=== PATIENT | female | born 1930 | race Caucasian/White ===

== ENCOUNTER 2018-03-20 13:27 | Inpatient (IN) ==
[2018-03-20] MEDS ORDERED: NON-FORMULARY MEDICATION 1 EACH EACH (Calcium Carbonate/Vitamin D3 [Calcium 500 + Vit D Ca PO SCH (21:00)
[2018-03-20] MEDS: Melatonin 3 MG TABLET PO SCH (22:12)
[2018-03-21 06:22] LABS: Basophils % 0.3 %; Eosinophils # 0.2 K/mcL (0.0-0.6); Eosinophils % 1.7 %; Hematocrit 30.4 % (35.3-44.9); Hemoglobin 10.4 g/dL (11.5-15.4); Immature Granulocytes % 3.1 % (0-4); Lymphocytes # 1.3 K/mcL (0.6-4.6); Lymphocytes % 9.8 %; Mean Corpuscular HGB Conc 34.2 g/dL (31.6-35.5); Mean Corpuscular Hemoglobin 31.8 pg (28.0-33.3); Mean Platelet Volume 9.7 fL (9.4-12.4); Monocytes # 1.6 K/mcL (0.0-1.3); Monocytes % 12.4 %; Neutrophils # 9.5 K/mcL (1.6-8.9); Platelet Count 285 K/mcL (140-400); Red Blood Count 3.27 M/mcL (3.82-4.97); Red Cell Distribution Width 14.3 % (11.5-14.5); Segmented Neutrophils % 72.7 %
[2018-03-21 06:35] LABS: Alanine Aminotransferase 10 Units/L (7-52); Albumin 2.6 g/dL (3.5-5.7); Alkaline Phosphatase 65 Units/L (34-104); Aspartate Amino Transferase 12 Units/L (13-39); BUN/Creatinine Ratio 19 (6-26); Bilirubin,Total 0.4 mg/dL (0.3-1.0); Blood Urea Nitrogen 10 mg/dL (8-23); Calcium 8.4 mg/dL (8.6-10.3); Carbon Dioxide 30 mEq/L (23-29); Chloride 100 mEq/L (98-107); Globulin 2.6 g/dL (2.4-3.5); Glucose 111 mg/dL (70-105); Osmolality,Calculated 280 (280-300); Potassium 3.4 mEq/L (3.5-5.1); Sodium 135 mEq/L (136-145); Total Protein 5.2 g/dL (6.4-8.9); eGFR For Non-African Americans > 60 (> 60)
[2018-03-21 06:46] LABS: Macrocytosis Present (Not Present); Platelet Estimate Normal (Normal)
[2018-03-21] MEDS: Furosemide 20 MG TABLET PO SCH (09:44)
[2018-03-21] MEDS: *HR* Amiodarone 200 MG TABLET PO SCH (09:44)
[2018-03-21] MEDS: Cholecalciferol (D-3) 1,000 UNIT TABLET PO SCH (09:44)
[2018-03-21] MEDS: *HR* Enoxaparin 40 MG/0.4 ML SYRINGE SQ SCH (11:23)
--- NOTE | 2018-03-21 11:31 | Internal Med History&Physical ---
Addendum entered and electronically signed by Monique Rodriguez 03/22/18 13:40: I have personally performed a face to face evaluation on this patient. I have reviewed and agree with the care plan. Original Note: Date of Encounter: 03/21/18 Time of Encounter: 11:26 Assessment and Plan (1) Physical deconditioning Current visit: Yes Status: Acute Patient continues with generalized weakness. No focal deficits noted. Will continue with current plan of care. PT/OT eval pending. (2) Ileus Current visit: Yes Status: Acute Ileus appears to have resolved. Abdomen is soft and nondistended. Patient states that she had a bowel movement this morning. Denies any abdominal cramping or nausea. We will continue with current plan of care. (3) Atrial fibrillation Current visit: Yes Status: Acute Acute issues. Patient's heart tones were auscultated and were regular on exam. Patient denies any chest palpitations or discomforts. We will continue with cu rrent medications. We will continue to monitor closely Qualifiers: Atrial fibrillation type: unspecified Qualified Code(s): I48.91 - Unspecified atrial fibrillation (4) Thoracic spine fracture Current visit: Yes Status: Acute Acute issues. Patient continues to have pain to her upper back. No deformities or step-offs noted on exam. No obvious injury noted. Patient currently with Lidoderm patch in place. Denies any radicular symptoms. We will continue with current plan of care and physical therapy. Qualifiers: Encounter type: subsequent encounter Fracture type: closed Fracture morphology: unspecified fracture morphology Fracture healing: with routine healing Qualified Code(s): S22.009D - Unspecified fracture of unspecified thoracic vertebra, subsequent encounter for fracture with routine healing Internal Medicine - H&P: HPI Chief complaint: weakness Admitted From: Hospital to Hospital Transfer Plans for Post Hospital Care: Home History of present illness: Ms. Bullock is a 87 year old female, who was transferred to this facility from an area hospital after being treated for possible sepsis, atrial fibrillation and a ileus. Patient was also with a history of a nonsurgical thoracic vertebrae fracture. Per minimal medical records provided patient's recovery at previous facility was mostly uneventful. Patient was noted to have episodes of slight hypotension and atrial fibrillation with RVR, which was treated and she has recovered well from. Patient continues with moderate generalized weakness requiring surgical therapy. Patient currently states mild pain to her upper back, which increases during mobilization. Patient denies any other discomforts or shortness of breath. Patient states that she has been passing gas and had a BM this morning nausea or vomiting. Denies any chest discomforts or palpitations. Past Med Surg Social Fam HX - Past Medical History Medical history: hyperlipidemia, hypertension, other Additional medical history: Acute PE Psychiatric history: no psych history - Past Surgical History Surgical History: cholecystectomy, hip replacement, knee replacement, other Additional surgical history: Bladder repair, common duct exploration - Social History Smoking Status: Never smoker Alcohol use: none Drug use: none - Family History Mother Living Status: Cause of : heart attack Hx Family Cardiac Disorders: Yes Father Living Status: Cause of : Alzheimers Internal Medicine - H&P: Meds Furosemide [Lasix] 20 mg PO DAILY 07/26/15 [History] Lidocaine Patch [Lidoderm 5% patch] 1 each TP DAILY 07/26/15 [History] Lisinopril [Zestril] 10 mg PO DAILY 07/26/15 [History] Pantoprazole Sodium [Protonix] 40 mg PO DAILY 07/26/15 [History] Simvastatin [Zocor] 40 mg PO HS 07/26/15 [History] Acetaminophen [Tylenol] 650 mg PO Q4HR PRN 03/20/18 [History] Albuterol Sulfate [Proventil Hfa] 6.7 gm IH Q6HR PRN 03/20/18 [History] Amiodarone [Cordarone] 200 mg PO DAILY 03/20/18 [History] Amoxicillin 875 mg PO BID 03/20/18 [History] Calcium Carbonate/Vitamin D3 [Calcium 500 + Vit D Caplet] 1 each PO BID 03/20/18 [History] Ferrous Sulfate [Iron] 325 mg PO BID 03/20/18 [History] Loperamide [Imodium] 2 mg PO Q6HR PRN 03/20/18 [History] Meclizine [Antivert] 25 mg PO Q6HR PRN 03/20/18 [History] Melatonin 3 mg PO HS 03/20/18 [History] Tamsulosin HCl [Flomax] 0.4 mg PO DAILY 03/20/18 [History] Allergy/AdvReac Type Severity Reaction Status Date / Time Sulfa (Sulfonamide Allergy See Verified 07/26/15 20:28 Antibiotics) Comments All Systems PM: A 10-system review of systems was performed and is negative for pertinent findings except as documented above in the HPI. - Constitutional Constitutional: as per HPI, no chills, no fever(s), no night sweats - EENT Eyes: as per HPI, no change in vision, no discharge, no pain, no photophobia Ears: no ear discharge, no ear pain, no tinnitus Nose, mouth and throat: as per HPI, no dysphagia, no nasal discharge, no neck pain, no sore throat - Breasts Breasts: as per HPI - Cardiovascular Cardiovascular ROS IM: as per HPI, no chest pain, no diaphoresis, no dyspnea, no lightheadedness, no palpitations, no syncope - Respiratory Respiratory: as per HPI, no cough, no dyspnea, no wheezing, no excessive phlegm production - Gastrointestinal Gastrointestinal: as per HPI, no abdominal pain, no diarrhea, no hematemesis, no hematochezia, no melena, no nausea, no vomiting - Genitourinary Genitourinary: as per HPI, no change in urinary stream, no dysuria, no flank pain, no hematuria - Musculoskeletal Musculoskeletal ROS IM: as per HPI, no numbness, no tingling - Integumentary Integumentary IM: no rash, no unusual bruising - Neurological Neurological ROS: as per HPI, no confusion, no convulsions, no focal weakness, no numbness, no tingling, no tremor(s) - Hematologic/Lymphatic Hematologic/Lymphatic: no easy bruising - Constitutional Vitals: Temp Pulse Resp BP Pulse Ox 99.2 F 102 16 141/82 93 03/21/18 11:16 03/21/18 11:16 03/21/18 11:16 03/21/18 11:16 03/21/18 11:16 General appearance: Present: A&O X 3, pleasant - Head Head exam: Present: atraumatic, normocephalic - Eye Eye exam: Present: PERRL, conjuntiva pink, sclera anicteric Pupils: Present: PERRL - Neck Neck exam general surgery: Present: supple, trachea midline. Absent: lymphadenopathy - Respiratory Respiratory exam: Present: CTAB. Absent: accessory muscle use, rales, rhonchi, wheezes Additional comments: Lungs are CTA to upper hou and diminished bases. RR relaxed - Cardiovascular Cardiovascular exam: Present: RRR, +S1, +S2. Absent: diastolic murmur, gallop, rubs, systolic murmur - GI/Abdominal GI/Abdominal exam: Present: normal bowel sounds, soft, no peritoneal signs. Absent: distended, tenderness Additional comments: slightly distended, but soft and nontender with BS all quads - Extremities Exam Extremities exam: Present: warm, radial pulses palpable and symmetrical. Absent: calf tenderness, cyanotic, pedal edema - Back Exam Additional comments: Reason with complaints of slight tenderness to upper back. No signs of obvious injury patient's complaints were during palpitation. No step-offs or deformities noted on palpitation - Neurological Exam Neurological exam: Present: CN II-XII intact, oriented X3, no focal deficits. Absent: pronater drift, facial droop, speech deficit - Skin Skin exam: Present: dry, intact Internal Med - H&P Results - Labs CBC & Chem 7: 03/21/18 06:00 03/21/18 06:00 Labs: Short CBC 03/21/18 Range/Units 06:00 WBC 13.1 H (4.3-11.1) K/mcL Hgb 10.4 L (11.5-15.4) g/dL Hct 30.4 L (35.3-44.9) % Plt Count 285 (140-400) K/mcL Neutrophils # 9.5 H (1.6-8.9) K/mcL BMP 03/21/18 06:00 Sodium 135 L Potassium 3.4 L Chloride 100 Carbon Dioxide 30 H BUN 10 Creatinine 0.53 L Glucose 111 H Calcium 8.4 L Liver Function 03/21/18 Range/Units 06:00 Total Bilirubin 0.4 (0.3-1.0) mg/dL AST 12 L (13-39) Units/L ALT 10 (7-52) Units/L Alkaline Phosphatase 65 (34-104) Units/L Albumin 2.6 L (3.5-5.7) g/dL
[2018-03-21] MEDS: Melatonin 3 MG TABLET PO SCH (20:42)
[2018-03-22] MEDS: *HR* Enoxaparin 40 MG/0.4 ML SYRINGE SQ SCH (04:31)
[2018-03-22] MEDS: Furosemide 20 MG TABLET PO SCH (09:43)
[2018-03-22] MEDS: *HR* Amiodarone 200 MG TABLET PO SCH (09:43)
[2018-03-22] MEDS: Cholecalciferol (D-3) 1,000 UNIT TABLET PO SCH (09:43)
[2018-03-22] MEDS ORDERED: *HR* Enoxaparin 40 MG/0.4 ML SYRINGE SQ SCH (10:10)
--- NOTE | 2018-03-22 10:59 | Internal Med Progress Note ---
Addendum entered and electronically signed by Monique Rodriguez 03/22/18 13:41: I have personally performed a face to face evaluation on this patient. I have reviewed and agree with the care plan. Original Note: Date of Encounter: 03/22/18 Time of Encounter: 10:57 - Assessment and plan (1) Physical deconditioning Current Visit: Yes Status: Acute Assessment and plan: Patient continues with moderate generalized weakness. Patient continues with physical therapy which is progressing well. (2) Ileus Current Visit: Yes Status: Acute Assessment and plan: No acute issues. Patient poorly continues to have loose stools. Abdomen remains slightly distended but no tenderness and remains soft. Denies any abdominal cramping or nausea. We will continue with current plan of care. We will continue to mobilize. (3) Thoracic spine fracture Current Visit: Yes Status: Acute Assessment and plan: No acute issues. Neurological exam remains unchanged. Patient denies any radi cular symptoms. Continued slight pain to thoracic spine area. We will continue with current pain medications Qualifiers: Encounter type: subsequent encounter Fracture type: closed Fracture morphology: unspecified fracture morphology Fracture healing: with routine healing Qualified Code(s): S22.009D - Unspecified fracture of unspecified thoracic vertebra, subsequent encounter for fracture with routine healing - Time Spent With Patient less than 15 minutes - Subjective Interval history: Patient appears relaxed and currently denies any current issues. Patient continues with complaints of pain to her thoracic spine region. States the pain is tolerable with current pain medications. Continue with Lidoderm patch in place. Patient reports patient continues to have loose stools. Patient denies any abdominal cramping or nausea. - Constitutional Vitals: Temp Pulse Resp BP Pulse Ox 99.3 F 55 16 129/73 93 03/22/18 07:14 03/22/18 07:14 03/22/18 07:14 03/22/18 07:14 03/22/18 07:14 General appearance: Present: A&O X 3, pleasant - Head Head exam: Present: atraumatic, normocephalic - Eye Eye exam: Present: PERRL, conjuntiva pink, sclera anicteric Pupils: Present: PERRL - Neck Neck exam general surgery: Present: supple, trachea midline. Absent: lymp hadenopathy - Respiratory Respiratory exam: Present: CTAB. Absent: accessory muscle use, rales, rhonchi, wheezes Additional comments: Lungs are clear throughout upper hou and diminished bases. Respiratory effort appears relaxed. No productive cough noted. - Cardiovascular Cardiovascular exam: Present: RRR, +S1, +S2. Absent: diastolic murmur, gallop, rubs, systolic murmur - GI/Abdominal GI/Abdominal exam: Present: normal bowel sounds, soft, no peritoneal signs. Absent: distended, tenderness Additional comments: Abdomen remains slightly distended but is soft and nontender. Bowel sounds all quadrants. - Extremities Exam Extremities exam: Present: warm, radial pulses palpable and symmetrical. Absent: calf tenderness, cyanotic, pedal edema - Back Exam Additional comments: Upper back palpated with no complaints of tenderness. No step-offs or deformities noted. No obvious injuries noted - Neurological Exam Neurological exam: Present: CN II-XII intact, oriented X3, no focal deficits. Absent: pronater drift, facial droop, speech deficit - Skin Skin exam: Present: dry, intact Internal Medicine: Result - Labs CBC & Chem 7: 03/21/18 06:00 03/21/18 06:00 Consult Discharge Plan - Plan Referrals: Eugenio Epstein [Primary Care Provider] -
[2018-03-22] MEDS: Melatonin 3 MG TABLET PO SCH (20:21)
[2018-03-23] MEDS: *HR* Enoxaparin 40 MG/0.4 ML SYRINGE SQ SCH (05:50)
[2018-03-23 06:35] LABS: BUN/Creatinine Ratio 13 (6-26); Blood Urea Nitrogen 7 mg/dL (8-23); Calcium 8.5 mg/dL (8.6-10.3); Carbon Dioxide 30 mEq/L (23-29); Chloride 98 mEq/L (98-107); Glucose 102 mg/dL (70-105); Osmolality,Calculated 274 (280-300); Potassium 3.4 mEq/L (3.5-5.1); Sodium 133 mEq/L (136-145); eGFR For Non-African Americans > 60 (> 60)
[2018-03-23] MEDS: Furosemide 20 MG TABLET PO SCH (09:13)
[2018-03-23] MEDS: Cholecalciferol (D-3) 1,000 UNIT TABLET PO SCH (09:13)
[2018-03-23] MEDS: *HR* Amiodarone 200 MG TABLET PO SCH (09:14)
[2018-03-23] MEDS ORDERED: Eucerin Cream 57 GM TUBE TP PRN (15:57)
--- NOTE | 2018-03-23 15:58 | Internal Med Progress Note ---
Date of Encounter: 03/23/18 Time of Encounter: 13:30 - Subjective Interval history: - Assessment and plan (1) Physical deconditioning and failure to thrive Current Visit: Yes Status: Acute Assessment and plan: Patient continues with severe generalized weakness, muscle wasting and poor po intake and no appetite will ask for assist with her mech soft meals, thickened liq will add supplement with dinner will add megace will treat nausea with prn zofran will treat cough with tessalon she has low K and has been on oral K supplement will recheck basic chem . Patient continues with physical therapy (2) Ileus Current Visit: Yes Status: Acute Assessment and plan: resolved on last day of augmentin will add probiotic Patient poorly continues to have loose stools. Abdomen remains slightly distended but no tenderness and remains soft. Denies any abdominal cramping or nausea. We will continue with current plan of care. We will continue to mobilize. (3) Thoracic spine fracture Current Visit: Yes Status: Acute Assessment and plan: still had pain - using lidoderm on calcium D . Neurological exam remains unchanged. Patient denies any radicular symptoms. We will continue with current pain medications Qualifiers: Encounter type: subsequent encounter Fracture type: closed Fracture morphology: unspecified fracture morphology Fracture healing: with routine healing Qualified Code(s): S22.009D - Unspecified fracture of unspecified thoracic vertebra, subsequent encounter for fracture with routine healing - Time Spent With Patient less than 15 minutes - Subjective Interval history: Patient continues with complaints of pain to her thoracic spine region. States the pain is tolerable with current pain medications. Continue with Lidoderm patch in place. Patient is weak and not eating well. Patient reports patient continues to have loose stools. She is nauseated at times . - EXAM General appearance: Present: very [place] - reads lips alert fatigued and frail muscle wasting noted WF - Eye Pupils: Present: PERRL - Neck Neck exam general surgery: Present: supple, trachea midline. she has some increased curvature of cervical spine - Respiratory Respiratory exam: Present: CTAB. pt has dry cough Absent: accessory muscle use, rales, rhonchi, wheezes Additional comments: Lungs are clear throughout upper hou and diminished bases. Respiratory effort appears relaxed. non productive cough noted. - Cardiovascular Cardiovascular exam: Present: RRR, +S1, +S2. Absent: diastolic murmur, gallop, rubs, systolic murmur - GI/Abdominal GI/Abdominal exam: Present: normal bowel sounds, soft, no peritoneal signs. Absent: distended, tenderness Additional comments: Abdomen remains slightly distended but is soft and nontender. Bowel sounds all quadrants. - Extremities Exam Extremities exam: Present: warm, radial pulses palpable and symmetrical. Absent: calf tenderness, cyanotic, pedal edema - Neurological Exam Neurological exam: Present: CN II-XII intact, oriented X3, no focal deficits. - Skin Skin exam: Present: thin skin dry, intact - Constitutional Vitals: Temp Pulse Resp BP Pulse Ox 97.9 F 98 19 127/82 91 03/23/18 07:50 03/23/18 07:50 03/22/18 20:17 03/23/18 07:50 03/23/18 07:50 General appearance: Present: A&O X 3, pleasant Internal Medicine: Result - Labs CBC & Chem 7: 03/21/18 06:00 03/23/18 05:40 Labs: BMP 03/23/18 05:40 Sodium 133 L Potassium 3.4 L Chloride 98 Carbon Dioxide 30 H BUN 7 L Creatinine 0.54 L Glucose 102 Calcium 8.5 L Consult Discharge Plan - Plan Referrals: Eugenio Epstein [Primary Care Provider] -
[2018-03-23] MEDS: Benzonatate 100 MG CAPSULE PO SCH ×2 (16:45→20:37)
[2018-03-23] MEDS: GuaiFENesin Liq 200 MG/10 ML UDC PO SCH (16:45)
[2018-03-23] MEDS: Melatonin 3 MG TABLET PO SCH (20:37)
[2018-03-24] MEDS: Acetaminophen 325 MG TABLET PO PRN ×2 (00:05→21:20)
[2018-03-24] MEDS: GuaiFENesin Liq 200 MG/10 ML UDC PO SCH ×2 (00:05→10:12)
[2018-03-24] MEDS: *HR* Enoxaparin 40 MG/0.4 ML SYRINGE SQ SCH (05:04)
[2018-03-24] MEDS: Furosemide 20 MG TABLET PO SCH (10:12)
[2018-03-24] MEDS: Benzonatate 100 MG CAPSULE PO SCH ×3 (10:12→22:44)
[2018-03-24] MEDS: Cholecalciferol (D-3) 1,000 UNIT TABLET PO SCH (10:12)
[2018-03-24] MEDS: *HR* Amiodarone 200 MG TABLET PO SCH (10:12)
[2018-03-24] MEDS ORDERED: Ondansetron ODT 4 MG TAB.RAPDIS SL PRN (12:32)
--- NOTE | 2018-03-24 13:45 | Internal Med Progress Note ---
Date of Encounter: 03/24/18 Time of Encounter: 15:00 - Subjective Interval history: - Assessment and plan (1) Physical deconditioning and failure to thrive Current Visit: Yes Status: Acute Assessment and plan: Patient continues with severe generalized weakness, muscle wasting and poor po intake and no appetite will ask for assist with her mech soft meals, thickened liq will add supplement with dinner will add megace will treat nausea with prn zofran will treat cough with tessalon . Patient continues with physical therapy (2) Ileus Current Visit: Yes Status: Acute Assessment and plan: resolved on last day of augmentin will add probiotic Patient poorly continues to have loose stools. Abdomen remains slightly distended but no tenderness and remains soft. Denies any abdominal cramping or nausea. We will continue with current plan of care. We will continue to mobilize. (3) Thoracic spine fracture Current Visit: Yes Status: Acute Assessment and plan: still had pain - using lidoderm on calcium D . Neurological exam remains unchanged. Patient denies any radicular symptoms. We will continue with current pain medications Qualifiers: Encounter type: subsequent encounter Fracture type: closed Fracture mo rphology: unspecified fracture morphology Fracture healing: with routine healing Qualified Code(s): S22.009D - Unspecified fracture of unspecified thoracic vertebra, subsequent encounter for fracture with routine healing (4) Hypokalemia he has low K and has been on oral K supplement K still low 3.4 today will give 20 meq K IV will recheck basic chem - Time Spent With Patient less than 15 minutes - Subjective Interval history: Patient continues with complaints of pain to her thoracic spine region. States the pain is tolerable with current pain medications. Continue with Lidoderm patch in place. Patient is weak and not eating well. Patient reports patient continues to have loose stools. She is nauseated at times . - EXAM General appearance: Present: very [place] - reads lips alert fatigued and frail muscle wasting noted W[place] - Eye Pupils: Present: PERRL - Neck Neck exam general surgery: Present: supple, trachea midline. she has some increased curvature of cervical spine - Respiratory Respiratory exam: Present: CTAB. pt has dry cough Absent: accessory muscle use, rales, rhonchi, wheezes Additional comments: Lungs are clear throughout upper hou and diminished bases. Respiratory effort appears relaxed. non productive cough noted. - Cardiovascular Cardiovascular exam: Present: RRR, +S1, +S2. Absent: diastolic murmur, gallop, rubs, systolic murmur - GI/Abdominal GI/Abdominal exam: Present: normal bowel sounds, soft, no peritoneal signs. Absent: distended, tenderness Additional comments: Abdomen remains slightly distended but is soft and nontender. Bowel sounds all quadrants. - Extremities Exam Extremities exam: Present: warm, radial pulses palpable and symmetrical. Absent: calf tenderness, cyanotic, pedal edema - Neurological Exam Neurological exam: Present: CN II-XII intact, oriented X3, no focal deficits. - Skin Skin exam: Present: thin skin dry, intact - Constitutional Vitals: Temp Pulse Resp BP Pulse Ox 98.9 F 101 16 151/88 90 03/24/18 08:36 03/24/18 08:36 03/24/18 08:36 03/24/18 08:36 03/24/18 08:36 General appearance: Present: A&O X 3, pleasant Internal Medicine: Result - Labs CBC & Chem 7: 03/21/18 06:00 03/23/18 05:40 Consult Discharge Plan - Plan Referrals: Eugenio Epstein [Primary Care Provider] -
[2018-03-24] MEDS ORDERED: 0.9 % Sodium Chloride 250 ML ONE (14:07)
[2018-03-24] MEDS: Megestrol Acetate 400 MG/10 ML UDC PO SCH (14:21)
[2018-03-24] MEDS ORDERED: Ipratropium/Albuterol Neb 3 ML IH PRN (19:56)
[2018-03-24] MEDS: Melatonin 3 MG TABLET PO SCH (21:20)
[2018-03-24] MEDS: Ipratropium/Albuterol Neb 3 ML IH SCH (21:20)
[2018-03-24] MEDS: Lactobacillus 1 EACH CAP.SPRINK PO SCH (21:20)
[2018-03-24] MEDS: cefTRIAXone 1,000 MG in Water for inj. (sterile) 20 ML 10 ML IVP SCH (21:20)
[2018-03-25 00:25] LABS: Bilirubin,Urine Negative (Negative); Blood,Urine Negative (Negative); Clarity,Urine Slightly Cloudy (Clear); Glucose,Urine (UA) Normal (Normal); Ketones,Urine Trace mg/dL (Negative); Leukocyte Esterase,Urine Negative (Negative); Nitrite,Urine Negative (Negative); PH,Urine 6.5 pH Units (5.0-8.0); Protein,Urine Negative (Neg-Trace); Specific Gravity,Urine 1.015 (1.010-1.025); Urobilinogen,Urine Normal (Normal)
[2018-03-25 00:26] LABS: Color,Urine Yellow (Yellow)
[2018-03-25] MEDS: MetroNIDAZOLE 500 MG/100 ML 500 MG/100 ML BAG IVPB SCH ×3 (00:39→16:20)
[2018-03-25] MEDS: Ipratropium/Albuterol Neb 3 ML IH SCH ×3 (01:37→18:08)
[2018-03-25] MEDS: *HR* Enoxaparin 40 MG/0.4 ML SYRINGE SQ SCH (04:56)
[2018-03-25] MEDS: Acetaminophen 325 MG TABLET PO PRN ×2 (04:59→17:31)
[2018-03-25 06:22] LABS: Basophils % 0.4 %; Eosinophils % 0.1 %; Hematocrit 28.5 % (35.3-44.9); Hemoglobin 9.5 g/dL (11.5-15.4); Immature Granulocytes % 0.7 % (0-4); Lymphocytes # 0.6 K/mcL (0.6-4.6); Lymphocytes % 7.8 %; Mean Corpuscular HGB Conc 33.3 g/dL (31.6-35.5); Mean Corpuscular Hemoglobin 31.6 pg (28.0-33.3); Mean Corpuscular Volume 94.7 fL (83.0-100.0); Mean Platelet Volume 9.9 fL (9.4-12.4); Monocytes # 1.2 K/mcL (0.0-1.3); Monocytes % 14.7 %; Neutrophils # 6.2 K/mcL (1.6-8.9); Platelet Count 288 K/mcL (140-400); Red Blood Count 3.01 M/mcL (3.82-4.97); Red Cell Distribution Width 15.2 % (11.5-14.5); Segmented Neutrophils % 76.3 %
[2018-03-25 06:24] LABS: BUN/Creatinine Ratio 13 (6-26); Blood Urea Nitrogen 8 mg/dL (8-23); Calcium 8.1 mg/dL (8.6-10.3); Carbon Dioxide 29 mEq/L (23-29); Chloride 100 mEq/L (98-107); Glucose 105 mg/dL (70-105); Osmolality,Calculated 279 (280-300); Potassium 3.6 mEq/L (3.5-5.1); Sodium 135 mEq/L (136-145); eGFR For Non-African Americans > 60 (> 60)
[2018-03-25] MEDS: Lactobacillus 1 EACH CAP.SPRINK PO SCH ×2 (08:16→20:04)
[2018-03-25] MEDS: Cholecalciferol (D-3) 1,000 UNIT TABLET PO SCH (08:32)
[2018-03-25] MEDS: *HR* Amiodarone 200 MG TABLET PO SCH (08:33)
[2018-03-25] MEDS: Megestrol Acetate 400 MG/10 ML UDC PO SCH (08:34)
[2018-03-25] MEDS: Benzonatate 100 MG CAPSULE PO SCH ×3 (11:46→20:05)
--- NOTE | 2018-03-25 13:25 | Internal Med Progress Note ---
Date of Encounter: 03/25/18 Time of Encounter: 11:45 - Subjective Interval history: - Assessment and plan (1) Physical deconditioning and failure to thrive Current Visit: Yes Status: Acute Assessment and plan: Patient continues with severe generalized weakness, muscle wasting and poor po intake and no appetite may be complicated by depression and colitis pt advised nurse she has been sad, denies active suicidal ideation ate about 5% of meals has thickened liquid for dysphagia needs some assist with meals pills better if crush and in applesauce will ask for assist with her mech soft meals, thickened liq and crush pills when able added supplement with dinner added megace can treat nausea with prn zofran . Patient continues with physical therapy as per her request (2) colitis, diarrhea, hx of Ileus Current Visit: Yes Status: Acute Assessment and plan: resolved on last day of augmentin yeseteray yesterday evening had 3 episodes diarrhea no melana and fever adding probiotic Abdomen remains slightly distended but no tenderness and remains soft. Did start iv flagly overnight no more stools so far hold lasix for now We will continue with current plan of care. We will continue to mobilize. (3) Thoracic spine fracture Current Visit: Yes Status: Acute Assessment and plan: still had pain - using lidoderm on calcium D . Neurological exam remains unchanged. Patient denies any radicular symptoms. We will continue with current pain medications Qualifiers: Encounter type: subsequent encounter Fracture type: closed Fracture morphology: unspecified fracture morphology Fracture healing: with routine healing Qualified Code(s): S22.009D - Unspecified fracture of unspecified thoracic vertebra, subsequent encounter for fracture with routine healing (4) Hypokalemia he has low K and has been on oral K supplement was having diarrhea as above GI loss and poor po intake will replace as needed, will recheck basic chem (5) Depression Pt reports sadness She is not happy to still be weak and be in hospital being very [place] makes it harder for her to communicate she does read lips well pt denies SI psych consult Zoloft (6) hx Pneumonia - possible new pneumonitis Pt has had cough and family reports hx of pneumonia xray shows scar and possible pneumonitis yesterday sputum became yellowish and had fever prev sputum was clear and scant pt had wheeze that responded well to duonebs- will continue duonebs started rocephin today no fever and wbc count normalizing pt likely has had increase atalectasis - Time Spent With Patient less than 30 minutes - Subjective Interval history: Pt overnight had developed fever and BP was from 150 to 115 HR 110 pt had onset yellow sputum and some wheeze, and increased diarrhea and abd distention. xrays showed no ileus but poss pneumonits. K remains low as she is not eating and has GI loss. She is not getting enough nutrition to be effective. Started on megace. Started on rocephin and flagyl and duonebs. Giving K . Depression may be contributing to her lack of eating. Started on Zoloft. No more diarrhea today. Lasix is on hold. She is feeling better today and she does want to continue PT. Patient continues with complaints of pain to her thoracic spine region. States the pain is tolerable with current pain medications. Continue with Lidoderm patch in place. - EXAM General appearance: Present: very [place] - reads lips alert fatigued and frail muscle wasting noted WF - Eye Pupils: Present: PERRL - Neck Neck exam general surgery: Present: supple, trachea midline. she has some increased curvature of cervical spine - Respiratory Respiratory exam: Present: faint musical wheezes. pt has dry cough Absent: accessory muscle use, rales, rhonchi, wheezes Additional comments: - Cardiovascular Cardiovascular exam: Present: RRR, +S1, +S2. Absent: diastolic murmur, gallop, rubs, systolic murmur - GI/Abdominal GI/Abdominal exam: Present: normal bowel sounds, soft, no peritoneal signs. Absent: distended, tenderness Additional comments: Abdomen remains slightly distended but is soft and nontender. Bowel sounds all quadrants. - Extremities Exam Extremities exam: Present: warm, radial pulses palpable and symmetrical. Absent: calf tenderness, cyanotic, pedal edema - Neurological Exam Neurological exam: Present: CN II-XII intact, oriented X3, no focal deficits. - Skin Skin exam: Present: thin skin dry, intact small erythema area arm where IV was soft - Constitutional Vitals: Temp Pulse Resp BP Pulse Ox 99.2 F 85 20 106/62 94 03/25/18 04:00 03/25/18 04:00 03/25/18 09:19 03/25/18 04:00 03/25/18 09:19 General appearance: Present: A&O X 3, pleasant Internal Medicine: Result - Labs CBC & Chem 7: 03/25/18 05:35 03/25/18 05:35 Labs: Short CBC 03/25/18 Range/Units 05:35 WBC 8.1 (4.3-11.1) K/mcL Hgb 9.5 L (11.5-15.4) g/dL Hct 28.5 L (35.3-44.9) % Plt Count 288 (140-400) K/mcL Neutrophils # 6.2 (1.6-8.9) K/mcL BMP 03/25/18 05:35 Sodium 135 L Potassium 3.6 Chloride 100 Carbon Dioxide 29 BUN 8 Creatinine 0.64 Glucose 105 Calcium 8.1 L Urine 03/25/18 Range/Units 00:05 Urine Color Yellow (Yellow) Urine Clarity Slightly Cloudy A (Clear) Urine pH 6.5 (5.0-8.0) pH Units Ur Specific [place] 1.015 (1.010-1.025) Urine Protein Negative (Neg-Trace) mg/dL Urine Glucose (UA) Normal (Normal) mg/dL - Impressions Impressions Chest X-Ray 03/24/18 19:41 IMPRESSION: 1. Low lung volumes with pulmonary findings typical of fibrosis. Superimposed interstitial pneumonitis is a consideration. 2. Calcific atherosclerosis aorta. 3. Cardiomegaly. 4. Hiatal hernia. D/ / Mathew Dooley / Mathew Dooley Interpreting Provider: Mathew Dooley X-Ray 03/24/18 19:43 IMPRESSION: Unremarkable bowel-gas pattern. 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 Probable right nephrolithiasis D/ / Mathew Dooley / Mathew Dooley Interpreting Provider: Mathew Dooley Consult Discharge Plan - Plan Referrals: Eugenio Epstein [Primary Care Provider] -
[2018-03-25] MEDS: Cyanocobalamin (B-12) 1,000 MCG TABLET PO SCH (16:12)
[2018-03-25] MEDS: Hydrocortisone Sodium Succ 100 MG/2 ML VIAL IVP SCH (16:16)
[2018-03-25] MEDS: cefTRIAXone 1,000 MG in Water for inj. (sterile) 20 ML 10 ML IVP SCH (18:22)
[2018-03-25] MEDS: Melatonin 3 MG TABLET PO SCH (20:04)
[2018-03-26] MEDS: MetroNIDAZOLE 500 MG/100 ML 500 MG/100 ML BAG IVPB SCH (00:32)
[2018-03-26] MEDS: Hydrocortisone Sodium Succ 100 MG/2 ML VIAL IVP SCH ×4 (00:39→23:22)
[2018-03-26] MEDS: Acetaminophen 325 MG TABLET PO PRN (01:40)
[2018-03-26] MEDS: Ipratropium/Albuterol Neb 3 ML IH SCH ×3 (01:40→17:38)
[2018-03-26] MEDS: *HR* Enoxaparin 40 MG/0.4 ML SYRINGE SQ SCH (05:42)
[2018-03-26 05:53] LABS: Hematocrit 30.4 % (35.3-44.9); Mean Corpuscular HGB Conc 32.9 g/dL (31.6-35.5); Mean Corpuscular Hemoglobin 31.2 pg (28.0-33.3); Mean Corpuscular Volume 94.7 fL (83.0-100.0); Mean Platelet Volume 9.7 fL (9.4-12.4); Platelet Count 306 K/mcL (140-400); Red Blood Count 3.21 M/mcL (3.82-4.97); Red Cell Distribution Width 15.3 % (11.5-14.5)
[2018-03-26 06:07] LABS: BUN/Creatinine Ratio 17 (6-26); Blood Urea Nitrogen 11 mg/dL (8-23); Calcium 8.2 mg/dL (8.6-10.3); Carbon Dioxide 27 mEq/L (23-29); Chloride 101 mEq/L (98-107); Glucose 149 mg/dL (70-105); Osmolality,Calculated 280 (280-300); Potassium 3.9 mEq/L (3.5-5.1); Sodium 134 mEq/L (136-145); eGFR For Non-African Americans > 60 (> 60)
[2018-03-26] MEDS: Lactobacillus 1 EACH CAP.SPRINK PO SCH ×2 (09:40→20:00)
[2018-03-26] MEDS: Megestrol Acetate 400 MG/10 ML UDC PO SCH (09:40)
[2018-03-26] MEDS: Cyanocobalamin (B-12) 1,000 MCG TABLET PO SCH (09:41)
[2018-03-26] MEDS: Benzonatate 100 MG CAPSULE PO SCH ×3 (09:41→20:00)
[2018-03-26] MEDS: *HR* Amiodarone 200 MG TABLET PO SCH (09:41)
[2018-03-26] MEDS: Cholecalciferol (D-3) 1,000 UNIT TABLET PO SCH (09:41)
--- NOTE | 2018-03-26 14:30 | Internal Med Progress Note ---
Addendum entered and electronically signed by Robert Shelton MD 03/26/18 14:50: I have personally performed a face to face evaluation on this patient. I have r eviewed and agree with the care plan. History and Exam by me shows: Patient is very concerned about her hearing aids not working. She is very hard to communicate with in terms of hearing. She states that she is supposed to have a specialist come to fix her aids and ask him that it is working. I told her that I unfortunately do not know. Communication is somewhat I her lip breathing, hearing, and gross hand signals such as "okay." Discussed care with other providers and/or nursing. Patient has no complaint of chest discomfort, dyspnea, orthopnea, palpitations, nausea or vomiting, constipation or diarrhea, other changes in bowel habits, difficulty with urination, rash or itching, or other new complaints, except as mentioned above. Review of systems is otherwise negative. Examination: (Except as mentioned above): General: In no apparent distress. Alert and oriented 3. Nondiaphoretic. Head: Atraumatic and normocephalic. Respiratory: No use of accessory muscles. Lungs are remarkable for rhonchi, especially in the right upper lobe area. She has a few scattered rhonchi, throughout. I am unable to assess fremitus or egophony because of patient compliance. Normal airflow. Cardiovascular: Regular rate and rhythm without murmur appreciated. Abdomen: Bowel sounds are normal. No hepatosplenomegaly mass or tenderness appreciated. Obese and therefore difficult to palpate deeply. Extremities: No cyanosis clubbing or edema. Skin: Warm and non-diaphoretic with no new lesions noted. IV access has been a problem and I think she needs to have a couple of days of IV antibiotics. Based on her current findings, I feel the need is significant enough that she should have a midline catheter. Original Note: Date of Encounter: 03/26/18 Time of Encounter: 14:21 - Assessment and plan (1) Pneumonia Current Visit: Yes Status: Acute Assessment and plan: vancomycin IV. monitor . Continue O2 per nasal cannula. Maintaining sets greater than 95% at 2 L. Qualifiers: Pneumonia type: due to unspecified organism Laterality: bilateral Lung location: unspecified part of lung Qualified Code(s): J18.9 - Pneumonia, unspecified organism (2) Failure to thrive Current Visit: Yes Status: Acute Assessment and plan: appetite slightly improved today. continue megace. monitor labs. Qualifiers: Failure to thrive age range: in adult Qualified Code(s): R62.7 - Adult failure to thrive (3) Physical deconditioning Current Visit: Yes Status: Acute Assessment and plan: Continue PT and OT. Will follow progress. Continue wheelchair for mobility. (4) Thoracic spine fracture Current Visit: Yes Status: Acute Assessment and plan: Pain controlled with Lidoderm patch. Qualifiers: Encounter type: subsequent encounter Fracture type: closed Fracture m orphology: unspecified fracture morphology Fracture healing: with routine healing Qualified Code(s): S22.009D - Unspecified fracture of unspecified thoracic vertebra, subsequent encounter for fracture with routine healing - Time Spent With Patient less than 15 minutes - Subjective Interval history: pt sitting up in [facility], participating with therapy. States that she has slight mid back pain. Has Lidoderm patch on. Has been having increased anxiety with tearful episodes. On Zoloft which was recently increased a 75 mg. Appetite improving slightly with megace. starting vacomycin IV for PNA. deneis fever, chills, SOB, NVD or chest pain at this time. - Constitutional Vitals: Temp Pulse Resp BP Pulse Ox 97.7 F 93 16 147/84 96 03/26/18 11:34 03/26/18 11:34 03/26/18 11:34 03/26/18 11:34 03/26/18 11:34 General appearance: Present: cooperative, A&O X 3, pleasant, no acute distress, answers questions appropriately Exam: very [place] - Head Head exam: Present: atraumatic, normocephalic - Eye Eye exam: Present: PERRL, conjuntiva pink, sclera anicteric Pupils: Present: PERRL - Neck Neck exam general surgery: Present: supple, trachea midline. Absent: lymphadenopathy - Respiratory Respiratory exam: Present: rales. Absent: accessory muscle use, rhonchi, wheez es Additional comments: scattered fine crackles throughout. no wheezing. - Cardiovascular Cardiovascular exam: Present: RRR, +S1, +S2. Absent: diastolic murmur, gallop, rubs, systolic murmur - GI/Abdominal GI/Abdominal exam: Present: normal bowel sounds, soft, no peritoneal signs. Absent: distended, tenderness - Extremities Exam Extremities exam: Present: warm, radial pulses palpable and symmetrical. Absent: calf tenderness, cyanotic, pedal edema - Neurological Exam Neurological exam: Present: CN II-XII intact, oriented X3, no focal deficits. Absent: pronater drift, facial droop, speech deficit - Skin Skin exam: Present: dry, intact Internal Medicine: Result - Labs CBC & Chem 7: 03/26/18 05:49 03/26/18 05:49 Labs: Short CBC 03/26/18 Range/Units 05:49 WBC 4.2 L (4.3-11.1) K/mcL Hgb 10.0 L (11.5-15.4) g/dL Hct 30.4 L (35.3-44.9) % Plt Count 306 (140-400) K/mcL [facility] 03/26/18 05:49 Sodium 134 L Potassium 3.9 Chloride 101 Carbon Dioxide 27 BUN 11 Creatinine 0.66 Glucose 149 H Calcium 8.2 L Consult Discharge Plan - Plan Referrals: Eugenio Epstein [Primary Care Provider] -
[2018-03-26] MEDS: cefTRIAXone 1,000 MG in Water for inj. (sterile) 20 ML 10 ML IVP SCH (17:58)
[2018-03-26] MEDS: Melatonin 3 MG TABLET PO SCH (20:00)
[2018-03-27] MEDS: Ipratropium/Albuterol Neb 3 ML IH SCH ×3 (02:00→16:48)
[2018-03-27] MEDS: *HR* Enoxaparin 40 MG/0.4 ML SYRINGE SQ SCH (04:37)
[2018-03-27] MEDS ORDERED: Aminoglycoside Consult 1 EACH MC ONE (07:26)
[2018-03-27] MEDS: Megestrol Acetate 400 MG/10 ML UDC PO SCH (10:09)
[2018-03-27] MEDS: Cyanocobalamin (B-12) 1,000 MCG TABLET PO SCH (10:11)
[2018-03-27] MEDS: Lactobacillus 1 EACH CAP.SPRINK PO SCH ×2 (10:11→21:01)
[2018-03-27] MEDS: Cholecalciferol (D-3) 1,000 UNIT TABLET PO SCH (10:12)
[2018-03-27] MEDS: *HR* Amiodarone 200 MG TABLET PO SCH (10:12)
[2018-03-27] MEDS: Hydrocortisone Sodium Succ 100 MG/2 ML VIAL IVP SCH ×3 (10:12→23:43)
[2018-03-27] MEDS: Benzonatate 100 MG CAPSULE PO SCH ×3 (10:12→21:01)
--- NOTE | 2018-03-27 14:46 | Internal Med Progress Note ---
Date of Encounter: 03/27/18 Time of Encounter: 14:44 - Assessment and plan (1) Pneumonia Current Visit: Yes Status: Acute Assessment and plan: She seems to be clinically stable from the standpoint I received a call from pharmacy asking if we need to keep her on IV antibiotics. For this reason, she will be switched to oral Omnicef and we will follow. She never had specimens that were obtained for culture. Qualifiers: Pneumonia type: due to unspecified organism Laterality: bilateral Lung location: unspecified part of lung Qualified Code(s): J18.9 - Pneumonia, unspecified organism (2) Weakness Current Visit: Yes Status: Acute Assessment and plan: Her therapy has not progressed well. She is frequently so tired that she is not able to respond therapist. She has failed to progress in fact seems like therapy has worn her out. She for this reason, therapy is recommending that she be considered for 24 7 care at home or in an ECF. volunteer services director is aware and evaluating. (3) Atrial fibrillation Current Visit: Yes Status: Acute Assessment and plan: Stable on current regimen. Qualifiers: Atrial fibrillation type: unspecified Qualified Code(s): I48.91 - Unsp ecified atrial fibrillation (4) Ileus Current Visit: Yes Status: Acute Assessment and plan: No current signs or symptoms. - Subjective Interval history: Patient is feeling fine compared to yesterday. She is without complaint. She has no problems hearing compared to yesterday. This is with the speaking at this time but my voice but she is much more communicative and completely oriented. Patient has no complaint of chest discomfort, dyspnea, orthopnea, palpitations, nausea or vomiting, constipation or diarrhea, other changes in bowel habits, dif ficulty with urination, rash or itching, or other new complaints, except as mentioned above. Review of systems is otherwise negative. I discussed management of her care with nursing staff. - Constitutional Vitals: Temp Pulse Resp BP Pulse Ox 97.6 F 87 16 109/72 95 03/27/18 11:28 03/27/18 11:28 03/27/18 11:28 03/27/18 11:28 03/27/18 11:28 Exam: Examination: (Except as mentioned above): General: In no apparent distress. Alert and oriented 3. Nondiaphoretic. She is very hard of hearing. Interestingly, she has different hearing aids in place. Head: Atraumatic and normocephalic. Respiratory: No use of accessory muscles. Lungs are clear throughout. Normal airflow. Cardiovascular: Regular rate and rhythm without murmur appreciated. Abdomen: Bowel sounds are normal. No hepatosplenomegaly mass or tenderness appreciated. Extremities: No cyanosis clubbing or edema. Skin: Warm and non-diaphoretic with no new lesions noted. Internal Medicine: Result - Labs CBC & Chem 7: 03/26/18 05:49 03/26/18 05:49 Consult Discharge Plan - Plan Referrals: Eugenio Epstein [Primary Care Provider] -
[2018-03-27] MEDS: Melatonin 3 MG TABLET PO SCH (21:01)
[2018-03-27] MEDS: Cefdinir 300 MG CAPSULE PO SCH (21:02)
[2018-03-28] MEDS: Ipratropium/Albuterol Neb 3 ML IH SCH ×4 (02:47→23:21)
[2018-03-28] MEDS: *HR* Enoxaparin 40 MG/0.4 ML SYRINGE SQ SCH (05:55)
[2018-03-28] MEDS: Hydrocortisone Sodium Succ 100 MG/2 ML VIAL IVP SCH ×3 (08:51→23:21)
[2018-03-28] MEDS: Megestrol Acetate 400 MG/10 ML UDC PO SCH (08:58)
[2018-03-28] MEDS: Cyanocobalamin (B-12) 1,000 MCG TABLET PO SCH (08:58)
[2018-03-28] MEDS: Cholecalciferol (D-3) 1,000 UNIT TABLET PO SCH (08:59)
[2018-03-28] MEDS: Benzonatate 100 MG CAPSULE PO SCH ×3 (09:00→23:03)
[2018-03-28] MEDS: Cefdinir 300 MG CAPSULE PO SCH ×2 (09:01→23:04)
[2018-03-28] MEDS: Lactobacillus 1 EACH CAP.SPRINK PO SCH ×2 (09:02→23:03)
[2018-03-28] MEDS: *HR* Amiodarone 200 MG TABLET PO SCH (09:02)
--- NOTE | 2018-03-28 11:20 | Internal Med Progress Note ---
Addendum entered and electronically signed by Robert Shelton MD 03/28/18 16:22: I have personally performed a face to face evaluation on this patient. I have r eviewed and agree with the care plan. History and Exam by me shows: When I asked the patient she is doing, she says "only fair." She is not willing to localize symptoms or problems. She is withdrawn and while she smiles initially, she is seemingly alert and oriented. Examination: (Except as mentioned above): General: In no apparent distress. Alert and oriented 3. (?) Nondiaphoretic. Head: Atraumatic and normocephalic. Respiratory: No use of accessory muscles. Lungs are clear throughout. Normal airflow. Cardiovascular: Regular rate and rhythm without murmur appreciated. Abdomen: Bowel sounds are normal. No hepatosplenomegaly mass or tenderness appreciated. Obese and therefore difficult to palpate deeply. Extremities: No cyanosis clubbing or edema. Skin: Warm and non-diaphoretic with no new lesions noted. Family is to identify a potential ECF for referral and then plan will be to discharge there. Social service has not heard back from son. Original Note: Date of Encounter: 03/28/18 Time of Encounter: 11:18 - Assessment and plan (1) Physical deconditioning Current Visit: Yes Status: Acute Assessment and plan: Patient continues with moderate generalized weakness. Patient continues with physical therapy, but reported difficulties due to generalized weakness (2) Ileus Current Visit: Yes Status: Acute Assessment and plan: No acute issues. Patient poorly continues to have loose stools. Abdomen remains slightly distended but no tenderness and remains soft. Denies any abdominal cramping or nausea. We will continue with current plan of care. We will continue to mobilize. (3) Thoracic spine fracture Current Visit: Yes Status: Acute Assessment and plan: No acute issues. Neurological exam remains unchanged. Patient denies any radicular symptoms. Continued slight pain to thoracic spine area. We will continue with current pain medications Qualifiers: Encounter type: subsequent encounter Fracture type: closed Fracture morphology: unspecified fracture morphology Fracture healing: with routine healing Qualified Code(s): S22.009D - Unspecified fracture of unspecified thoracic vertebra, subsequent encounter for fracture with routine healing - Time Spent With Patient less than 15 minutes - Subjective Interval history: Patient appears relaxed and currently denies any current issues. Patient complains of generalized weakness. Denies any current discomforts or shortness of breath. - Constitutional Vitals: Temp Pulse Resp BP Pulse Ox 98.1 F 93 16 163/92 94 03/28/18 08:00 03/28/18 08:00 03/28/18 08:00 03/28/18 08:00 03/28/18 08:00 General appearance: Present: cooperative, A&O X 3, pleasant, no acute distress, answers questions appropriately - Head Head exam: Present: atraumatic, normocephalic - Eye Eye exam: Present: PERRL, conjuntiva pink, sclera anicteric Pupils: Present: PERRL - Neck Neck exam general surgery: Present: supple, trachea midline. Absent: lymphadenopathy - Respiratory Respiratory exam: Present: CTAB. Absent: accessory muscle use, rales, rhonchi, wheezes - Cardiovascular Cardiovascular exam: Present: RRR, +S1, +S2. Absent: diastolic murmur, gallop, rubs, systolic murmur - GI/Abdominal GI/Abdominal exam: Present: normal bowel sounds, soft, no peritoneal signs. Absent: distended, tenderness - Extremities Exam Extremities exam: Present: warm, radial pulses palpable and symmetrical. Absent: calf tenderness, cyanotic, pedal edema - Neurological Exam Neurological exam: Present: CN II-XII intact, oriented X3, no focal deficits. Absent: pronater drift, facial droop, speech deficit - Skin Skin exam: Present: dry, intact Internal Medicine: Result - Labs CBC & Chem 7: 03/26/18 05:49 03/26/18 05:49 Consult Discharge Plan - Plan Referrals: Eugenio Epstein [Primary Care Provider] -
[2018-03-28] MEDS: Melatonin 3 MG TABLET PO SCH (23:03)
[2018-03-29] MEDS: Acetaminophen 325 MG TABLET PO PRN (00:16)
[2018-03-29] MEDS: *HR* Enoxaparin 40 MG/0.4 ML SYRINGE SQ SCH (06:45)
[2018-03-29] MEDS: Benzonatate 100 MG CAPSULE PO SCH ×2 (09:26→16:52)
[2018-03-29] MEDS: Lactobacillus 1 EACH CAP.SPRINK PO SCH (09:26)
[2018-03-29] MEDS: Megestrol Acetate 400 MG/10 ML UDC PO SCH (09:26)
[2018-03-29] MEDS: Cholecalciferol (D-3) 1,000 UNIT TABLET PO SCH (09:26)
[2018-03-29] MEDS: Cefdinir 300 MG CAPSULE PO SCH (09:27)
[2018-03-29] MEDS: *HR* Amiodarone 200 MG TABLET PO SCH (09:27)
[2018-03-29] MEDS: Cyanocobalamin (B-12) 1,000 MCG TABLET PO SCH (09:27)
[2018-03-29] MEDS: Hydrocortisone Sodium Succ 100 MG/2 ML VIAL IVP SCH ×2 (09:28→16:49)
[2018-03-29] MEDS: Ipratropium/Albuterol Neb 3 ML IH SCH ×2 (09:45→18:52)
--- NOTE | 2018-03-29 12:39 | Internal Med Progress Note ---
Addendum entered and electronically signed by Robert Shelton MD 03/29/18 13:35: I have personally performed a face to face evaluation on this patient. I have r eviewed and agree with the care plan. History and Exam by me shows: Patient states that she is feeling somewhat better and is making slow progress. She denies acute problems. She also denies shortness of breath or cough. However, she has an abnormal exam, worsening yesterday (see below). Discussed care with other providers and/or nursing. Patient has no complaint of chest discomfort, dyspnea, orthopnea, palpitations, nausea or vomiting, constipation or diarrhea, other changes in bowel habits, difficulty with urination, rash or itching, or other new complaints, except as mentioned above. Review of systems is otherwise negative. Examination: (Except as mentioned above): General: In no apparent distress. Alert and oriented 3. Nondiaphoretic. Head: Atraumatic and normocephalic. Respiratory: No use of accessory muscles. She has diffuse sonorous rhonchi and some moist rhonchi which may be upper airway sounds. Cardiovascular: Regular rate and rhythm without murmur appreciated. Abdomen: Bowel sounds are normal. No hepatosplenomegaly mass or tenderness appreciated. Obese and therefore difficult to palpate deeply. Extremities: No cyanosis clubbing or edema. Skin: Warm and non-diaphoretic with no new lesions noted. Social service has not heard from family about ECF placement and so she has basically been put on hold. Because of her abnormal respiratory exam and inability to localize or assess severity, we will recheck a chest x-ray. Her former location called with a positive urinary tract infection for yeast. She is empirically been treated with Diflucan. Original Note: Date of Encounter: 03/29/18 Time of Encounter: 12:37 - Assessment and plan (1) Pneumonia Current Visit: Yes Status: Acute Assessment and plan: Increased congestion and cough. Will repeat chest x-ray. Antibiotics completed for pneumonia. Qualifiers: Pneumonia type: due to unspecified organism Laterality: bilateral Lung location: unspecified part of lung Qualified Code(s): J18.9 - Pneumonia, unspecified organism (2) Failure to thrive Current Visit: Yes Status: Acute Assessment and plan: appetite slightly improved today. continue megace. monitor labs. Qualifiers: Failure to thrive age range: in adult Qualified Code(s): R62.7 - Adult failure to thrive (3) Thoracic spine fracture Current Visit: Yes Status: Acute Assessment and plan: Pain controlled with Lidoderm patch. Qualifiers: Encounter type: subsequent encounter Fracture type: closed Fracture morphology: unspecified fracture morphology Fracture healing: with routine healing Qualified Code(s): S22.009D - Unspecified fracture of unspecified thoracic vertebra, subsequent encounter for fracture with routine healing (4) Weakness Current Visit: Yes Status: Acute Assessment and plan: Continue PT and OT. Will follow progress - Time Spent With Patient less than 15 minutes - Subjective Interval history: pt sitting up in [facility], participating with therapy. States that she has slight mid back pain. increased cough this morning. Was recently treated for pneumonia. deneis fever, chills, SOB, NVD or chest pain at this time. - Constitutional Vitals: Temp Pulse Resp BP Pulse Ox 98.4 F 107 16 151/102 98 03/29/18 10:38 03/29/18 10:38 03/29/18 10:38 03/29/18 10:38 03/29/18 10:38 General appearance: Present: cooperative, A&O X 3, pleasant, no acute distress, answers questions appropriately Exam: Very hard of hearing - Head Head exam: Present: atraumatic, normocephalic - Eye Eye exam: Present: PERRL, conjuntiva pink, sclera anicteric Pupils: Present: PERRL - Neck Neck exam general surgery: Present: supple, trachea midline. Absent: lymphadenopathy - Respiratory Respiratory exam: Present: rales, rhonchi. Absent: accessory muscle use, wheezes Additional comments: Rhonchi and crackles scattered throughout. Congested cough - Cardiovascular Cardiovascular exam: Present: RRR, +S1, +S2. Absent: diastolic murmur, gallop, rubs, systolic murmur - GI/Abdominal GI/Abdominal exam: Present: normal bowel sounds, soft, no peritoneal signs. Absent: distended, tenderness - Extremities Exam Extremities exam: Present: pedal edema, warm, radial pulses palpable and symmetrical. Absent: calf tenderness, cyanotic Additional comments: Trace non-pitting edema bilateral lower extremities - Neurological Exam Neurological exam: Present: CN II-XII intact, oriented X3, no focal deficits. Absent: pronater drift, facial droop, speech deficit - Skin Skin exam: Present: dry, intact Internal Medicine: Result - Labs CBC & Chem 7: 03/26/18 05:49 03/26/18 05:49 Consult Discharge Plan - Plan Referrals: Eugenio Epstein [Primary Care Provider] -
[2018-03-30] MEDS: Benzonatate 100 MG CAPSULE PO SCH ×3 (00:13→16:29)
[2018-03-30] MEDS: Hydrocortisone Sodium Succ 100 MG/2 ML VIAL IVP SCH ×3 (00:14→16:28)
[2018-03-30] MEDS: Lactobacillus 1 EACH CAP.SPRINK PO SCH ×2 (00:14→08:37)
[2018-03-30] MEDS: Acetaminophen 325 MG TABLET PO PRN (00:14)
[2018-03-30] MEDS: Cefdinir 300 MG CAPSULE PO SCH ×2 (00:14→08:37)
[2018-03-30] MEDS: Melatonin 3 MG TABLET PO SCH (00:14)
[2018-03-30] MEDS: Ipratropium/Albuterol Neb 3 ML IH SCH ×2 (00:37→08:56)
[2018-03-30] MEDS: *HR* Enoxaparin 40 MG/0.4 ML SYRINGE SQ SCH (07:05)
[2018-03-30] MEDS: Megestrol Acetate 400 MG/10 ML UDC PO SCH (08:36)
[2018-03-30] MEDS: Cholecalciferol (D-3) 1,000 UNIT TABLET PO SCH (08:37)
[2018-03-30] MEDS: Cyanocobalamin (B-12) 1,000 MCG TABLET PO SCH (08:38)
[2018-03-30] MEDS: *HR* Amiodarone 200 MG TABLET PO SCH (08:38)
[2018-03-30] MEDS ORDERED: Furosemide 40 MG/4 ML VIAL IVP ONE (09:17)
[2018-03-30 09:50] LABS: Basophils % 0.2 %; Hematocrit 37.5 % (35.3-44.9); Hemoglobin 12.1 g/dL (11.5-15.4); Immature Granulocytes % 0.9 % (0-4); Lymphocytes # 1.9 K/mcL (0.6-4.6); Lymphocytes % 18.3 %; Mean Corpuscular HGB Conc 32.3 g/dL (31.6-35.5); Mean Corpuscular Hemoglobin 31.2 pg (28.0-33.3); Mean Corpuscular Volume 96.6 fL (83.0-100.0); Mean Platelet Volume 9.9 fL (9.4-12.4); Monocytes % 15.8 %; Platelet Count 378 K/mcL (140-400); Red Blood Count 3.88 M/mcL (3.82-4.97); Red Cell Distribution Width 15.7 % (11.5-14.5); Segmented Neutrophils % 64.8 %
[2018-03-30 10:03] LABS: Monocytes # 1.6 K/mcL (0.0-1.3); Neutrophils # 6.7 K/mcL (1.6-8.9)
[2018-03-30 10:08] LABS: BUN/Creatinine Ratio 31 (6-26); Blood Urea Nitrogen 22 mg/dL (8-23); Calcium 9.5 mg/dL (8.6-10.3); Carbon Dioxide 28 mEq/L (23-29); Chloride 105 mEq/L (98-107); Glucose 203 mg/dL (70-105); Magnesium 2.2 mg/dL (1.6-2.6); Osmolality,Calculated 295 (280-300); Potassium 4.4 mEq/L (3.5-5.1); Sodium 138 mEq/L (136-145); eGFR For Non-African Americans > 60 (> 60)
--- NOTE | 2018-03-30 10:13 | Internal Med Progress Note ---
Date of Encounter: 03/30/18 Time of Encounter: 09:10 - Assessment and plan (1) Pneumonia Current Visit: Yes Status: Acute Assessment and plan: She will continue on antibiotics, as before. Qualifiers: Pneumonia type: due to unspecified organism Laterality: bilateral Lung location: unspecified part of lung Qualified Code(s): J18.9 - Pneumonia, unspecified organism (2) Weakness Current Visit: Yes Status: Acute Assessment and plan: As before, prison placement or 24-hour care at home is recommended. Social service will try again to obtain family guidance on Sunday. Her ability to participate is now limited by her heart failure, as well. (3) Atrial fibrillation Current Visit: Yes Status: Acute Assessment and plan: Clinically stable in terms of rate. Qualifiers: Atrial fibrillation type: unspecified Qualified Code(s): I48.91 - Unspecified atrial fibrillation (4) Congestive heart failure Current Visit: Yes Status: Acute Qualifiers: Heart failure type: unspecified Heart failure chronicity: acute Qualified Code(s): I50.9 - Heart failure, unspecified (5) Congestive heart failure of unknown etiology Current Visit: Yes Status: Acute Assessment and plan: We will give IV Lasix, follow clinically, check routine labs. - Subjective Interval history: Asked by nursing to see patient because she seemed to have more respiratory distress. She is minimally responsive as she often is midmorning. Of note, she received Haldol last evening. X-ray from yesterday shows interstitial edema. I was not notified of same and on 2 or 3 occasions report was not back on chest x-ray, before I left the hospital. Patient has no complaint of chest discomfort, dyspnea, orthopnea, palpitations, nausea or vomiting, constipation or diarrhea, other changes in bowel habits, difficulty with urination, rash or itching, or other new complaints, except as mentioned above. Review of systems is otherwise negative. I discussed management of her care with nursing staff. - Constitutional Vitals: Temp Pulse Resp BP Pulse Ox 98.5 F 102 14 170/97 97 03/30/18 07:53 03/30/18 07:53 03/30/18 07:53 03/30/18 07:53 03/30/18 07:53 Exam: Examination: (Except as mentioned above): General: In no apparent distress. Occasional cough. Nondiaphoretic. Minimally responsive, as noted above. Head: Atraumatic and normocephalic. Respiratory: No use of accessory muscles. I hear no rales. However, she has diffuse sonorous rhonchi and upper airway sounds are slightly worse than yesterday. Cardiovascular: Heart sounds are distant and not well heard above her rhonchi. Abdomen: Bowel sounds are normal. No hepatosplenomegaly mass or tenderness appreciated. Obese and therefore difficult to palpate deeply. Extremities: No cyanosis clubbing or edema. Skin: Warm and non-diaphoretic with no new lesions noted. Internal Medicine: Result - Labs CBC & Chem 7: 03/30/18 09:45 03/30/18 09:45 Labs: Short CBC 03/30/18 Range/Units 09:45 WBC 10.4 D (4.3-11.1) K/mcL Hgb 12.1 D (11.5-15.4) g/dL Hct 37.5 (35.3-44.9) % Plt Count 378 (140-400) K/mcL Neutrophils # 6.7 (1.6-8.9) K/mcL BMP 03/30/18 09:45 Sodium 138 Potassium 4.4 Chloride 105 Carbon Dioxide 28 BUN 22 Creatinine 0.72 Glucose 203 H Calcium 9.5 - Impressions Impressions Chest X-Ray 03/29/18 11:36 IMPRESSION: Small bilateral pleural effusions. Interstitial prominence likely related to edema. Hiatal hernia. D/ / Irene Merrill MD / Irene Merrill MD Interpreting Provider: Irene Merrill MD Consult Discharge Plan - Plan Referrals: Eugenio Epstein [Primary Care Provider] -
[2018-03-30 12:23] LABS: Bilirubin,Urine Negative (Negative); Blood,Urine Negative (Negative); Clarity,Urine Clear (Clear); Color,Urine Yellow (Yellow); Glucose,Urine (UA) Normal (Normal); Hyaline Casts,Urine Few per lpf (None-Few); Ketones,Urine Negative (Negative); Leukocyte Esterase,Urine Negative (Negative); Nitrite,Urine Negative (Negative); Protein,Urine 30 mg/dL (Neg-Trace); Specific Gravity,Urine 1.025 (1.010-1.025); Urobilinogen,Urine Normal (Normal)
[2018-03-30 14:47] VITALS: BP 130/88
--- NOTE | 2018-03-30 15:38 | Discharge Summary ---
Orders not resulted at time of discharge: Pending orders 03/30/18 10:19 ECG 12 lead ECG [ECG] Stat 03/30/18 15:28 CBC [Complete Blood Count] [HEME] Stat 03/30/18 15:29 Activated Partial Thrombo Time [COAG] Stat PT/INR [Prothrombin Time INR] [COAG] Stat Date of Encounter: 03/30/18 Time of Encounter: 15:36 - Discharge Diagnosis (1) Pneumonia Priority: Secondary Status: Acute Qualifiers: Pneumonia type: due to unspecified organism Laterality: bilateral Lung location: unspecified part of lung Qualified Code(s): J18.9 - Pneumonia, unspecified organism (2) Weakness Priority: Primary Status: Acute (3) Atrial fibrillation Priority: Secondary Status: Acute Qualifiers: Atrial fibrillation type: unspecified Qualified Code(s): I48.91 - Unspecified atrial fibrillation (4) Congestive heart failure Priority: Secondary Status: Acute Qualifiers: Heart failure type: unspecified Heart failure chronicity: acute Qualified Code(s): I50.9 - Heart failure, unspecified (5) Hematochezia Priority: Secondary Status: Acute Hospital course: Ms. Bullock is a 87 year old female admitted for generalized weakness after recent pneumonia. She was noted to be hard of hearing and have intermittent episodes where she is nonresponsive, almost comatose. Later in the day, she frequently woke up and went off and be interactive and cheerful, especially when she had better function of her hearing aids. She failed to respond adequately to therapy and was actually not making progress. Family was to notify social service about long-term care facility placement. This was decided about 4 days prior to discharge but no progress was made from family communication standpoin t. One day prior to discharge, she had increasing cough and a delayed chest x-ray showed that she had heart failure. She was treated with IV Lasix on the day of discharge and improved from a respiratory status. She was noted to have a dark stool and this had blood in i it. Early in the afternoon, she was more responsive and seemed to be doing well, to the point of wanting something to eat. Shortly thereafter, while being bathed, she had a large volume (over 500 mL's) of a maroon to bloodycolored stool. Stat laboratory was ordered and is now pending. She was anticoagulated prophylactically with anoxic apparent and this was discontinued, as well. She had tachycardia with an EKG that showed no signs of ischemia or atrial fibrillation and only PACs with mostly sinus rhythm. At about 1620, I spoke with Dr. Farrar, the hospitalist at [facility] and he agreed to accept in transfer. - Time Spent with Patient Total time spent providing and/or coordinating discharge services: Greater than 30 minutes - Discharge Medications Home Medications: Furosemide [Lasix] 20 mg PO DAILY 07/26/15 [History] Lidocaine Patch [Lidoderm 5% patch] 1 each TP DAILY 07/26/15 [History] Lisinopril [Zestril] 10 mg PO DAILY 07/26/15 [History] Pantoprazole Sodium [Protonix] 40 mg PO DAILY 07/26/15 [History] Simvastatin [Zocor] 40 mg PO HS 07/26/15 [History] Acetaminophen [Tylenol] 650 mg PO Q4HR PRN 03/20/18 [History] Albuterol Sulfate [Proventil Hfa] 6.7 gm IH Q6HR PRN 03/20/18 [History] Amiodarone [Cordarone] 200 mg PO DAILY 03/20/18 [History] Amoxicillin 875 mg PO BID 03/20/18 [History] Calcium Carbonate/Vitamin D3 [Calcium 500 + Vit D Caplet] 1 each PO BID 03/20/18 [History] Ferrous Sulfate [Iron] 325 mg PO BID 03/20/18 [History] Loperamide [Imodium] 2 mg PO Q6HR PRN 03/20/18 [History] Meclizine [Antivert] 25 mg PO Q6HR PRN 03/20/18 [History] Melatonin 3 mg PO HS 03/20/18 [History] Tamsulosin HCl [Flomax] 0.4 mg PO DAILY 03/20/18 [History] Allergies/Adverse Reactions: Allergy/AdvReac Type Severity Reaction Status Date / Time Sulfa (Sulfonamide Allergy See Verified 07/26/15 20:28 Antibiotics) Comments Date of admission: 03/20/18 17:37 Primary care physician: Eugenio Epstein Consults: 03/20/18 18:44 Consult to Occupational Therapy [CONS] Routine Comment: eval Reason for Consult: eval Does patient have active BEDREST order?: No Is patient medically & hemodynamically stable?: Yes Consult to Physical Therapy [CONS] Routine Comment: eval and tx Reason for Consult: eval and tx Does patient have active BEDREST order?: No Is patient medically & hemodynamically stable?: Yes Consult to Recreational Therapy [CONS] Routine Comment: Consult to [employer] [CONS] Routine Reason for SW Consult: d/c planning 03/20/18 18:46 Consult to Speech Therapy [CONS] Routine Comment: Evaluate, develop and implement POC Reason for Consult: eval Call Completed: Yes 03/20/18 18:58 Consult to [employer] [CONS] Routine Reason for SW Consult: eval for return home 03/24/18 14:05 Consult to Psychology [CONS] Routine Consulting Provider: Kristina Fuentes Reason for Consult: Possible depression; adjustment disorder Call Completed: No Discharging clinician: Robert Shelton Anticipated date of discharge: 03/30/18 - Constitutional Vitals: Temp Pulse Resp BP Pulse Ox 98.4 F 119 26 130/88 95 03/30/18 14:46 03/30/18 14:46 03/30/18 14:46 03/30/18 14:46 03/30/18 14:46 Exam: Examination: (Except as mentioned above): General: In no apparent distress. Very hard of hearing but nods yes and no and response to question and denies pain. Orientation is difficult to assess because of patient's hearing. Nondiaphoretic. Head: Atraumatic and normocephalic. Respiratory: No use of accessory muscles. She has diffuse sonorous rhonchi but improved versus this morning, in terms of airflow. Cardiovascular: Tachycardic but regular rhythm. Abdomen: Bowel sounds are diminished at present in all 4 quadrants. . No hepatosplenomegaly mass or tenderness appreciated. Extremities: No cyanosis clubbing or edema. Skin: Warm and non-diaphoretic with no new lesions noted. - Patient Status Disposition: Transfer Short-Term Hosp Condition: Serious Functional capacity at discharge: wheelchair bound Overall status at discharge: patient is not back to baseline - Discharge Instructions Follow Up With: Eugenio Epstein [Primary Care Provider] - - Diet and Activity Diet: other
[2018-03-30 15:59] LABS: Basophils % 0.1 %; Hematocrit 34.3 % (35.3-44.9); Hemoglobin 11.1 g/dL (11.5-15.4); Immature Granulocytes % 0.6 % (0-4); Lymphocytes # 1.1 K/mcL (0.6-4.6); Mean Corpuscular HGB Conc 32.4 g/dL (31.6-35.5); Mean Corpuscular Hemoglobin 31.4 pg (28.0-33.3); Mean Corpuscular Volume 96.9 fL (83.0-100.0); Mean Platelet Volume 9.9 fL (9.4-12.4); Monocytes # 1.6 K/mcL (0.0-1.3); Monocytes % 12.4 %; Neutrophils # 10.4 K/mcL (1.6-8.9); Platelet Count 303 K/mcL (140-400); Red Blood Count 3.54 M/mcL (3.82-4.97); Red Cell Distribution Width 15.6 % (11.5-14.5); Segmented Neutrophils % 78.9 %
[2018-03-30 16:09] LABS: INR 0.9; Prothrombin Time 10.4 Seconds (9.4-12.1)
[2018-03-30 16:12] LABS: Activated Partial Thrombo Time 26.3 Seconds (26.0-36.0)
--- NOTE | 2018-04-02 17:28 | Electrocardiograph Report ---
[place] [id number] Test Date: 2018-03-30 Pat Name: Briseyda Bullock Department: 2001 Room: 115 Gender: F C [id number] Crew Chief: : [id number] Requested By: Robert Shelton Order Number: [id number] Reading MD: Karena Cardoso Measurements Intervals [place] Rate: 112 P: 40 CT: 146 QRS: -37 QRSD: 86 T: -4 QT: 256 QTc: 323 Interpretive Statements SINUS TACHYCARDIA WITH FREQUENT SUPRAVENTRICULAR PREMATURE COMPLEXES MARKED LEFT AXIS DEVIATION [QRS AXIS < -30] NONSPECIFIC T-WAVE ABNORMALITY Electronically Signed On 04-02-2018 17:26:40 EST by Karena Cardoso
== END 2018-03-30 18:05 | disposition short-term general hospital (02) | DRG 945 ==
LOC: INPGRE 17:37